=== PATIENT | male | born 1990 | race Caucasian/White ===

== ENCOUNTER 2017-12-14 20:27 | Emergency (ER) | payer OTHER ==
[2017-12-14 20:35] VITALS: BP 127/91; BMI 26.6
--- NOTE | 2017-12-14 23:54 | DR.GENAD ---
HPI - PCP Primary Care Physician: NFD - Complaint/Symptoms Chief Complaint:: PT STATES" I GET NAUSEAED WHEN I EAT AND I VOMIT FOR THE LAST 2 WEEKS I ONLY DRIBBLE WHEN I PEE AND I HAVE TO GO MORE OFTEN " - Source History Provided: Patient - Mode of Arrival Mode of Arrival: Ambulatory - Timing Onset of Chief Complaint: 11/30/17 PMH - PMH Past Medical History: No Past Surgical History: Yes Past Surgical History Comment: LT KIDNEY REMOVED AT 18 MONTHS OF AGE - Family History History of Family Medical Conditions: Yes Family Medical History: Diabetes Mellitus, Coronary Artery Disease - Social History Type of Tobacco Use: Cigarettes Does any household member use tobacco: Yes Alcohol Use: None Do you use any recreational Drugs:: No Lives With: Family Lives Where: Home - infectious screening In the last 2 months have you had wt loss of >10#?: NO Have you had fever, night sweats or hemotysis?: No Have you traveled outside the country in the last 6 months?: No Isolation: Standard PE - Vital Signs Vitals: Temperature 98.3 F Pulse Rate 95 Respiratory Rate 18 Blood Pressure 127/91 O2 Sat by Pulse Oximetry 98 - Diagnosis Discharge Problem: Left without being seen after triage - Discharge Plan Disposition: LWBS After Triage Condition: Stable - Follow ups/Referrals Follow ups/Referrals: NFD,None [Primary Care Provider] - 3 days - Instructions
== END 2017-12-14 23:50 | disposition left against medical advice (07) ==
LOC: ER 20:42
DX: R11.2 Nausea with vomiting, unspecified (principal)
CPT/HCPCS: 99281